=== PATIENT | female | born 1995 | race Caucasian/White ===

== ENCOUNTER 2016-09-02 17:19 | Emergency (ER) | payer OTHER ==
[2016-09-02 18:37] LABS: Hematocrit 39 % (35-47); Hemoglobin 12.9 g/dl (12.0-16.0); Mean Corpuscular HGB Conc 33 g/dl (31-36); Mean Corpuscular Hemoglobin 28 pg (27-31); Mean Corpuscular Volume 83 fL (80-97); Mean Platelet Volume 8 um3 (7.4-10.4); Red Blood Count 4.68 10^6/ul (4.0-5.4); Red Cell Distribution Width 13 % (10.5-15); White Blood Count 8.1 10^3/ul (3.5-10.8)
[2016-09-02 18:53] LABS: ALT 19 U/L (7-52); AST 31 U/L (13-39); Alkaline Phosphatase 48 U/L (34-104); Anion Gap 6 mmol/L (2-11); BUN/Creatinine Ratio 11.3 (8-20); Blood Urea Nitrogen 9 mg/dL (6-24); C Reactive Protein 4.87 mg/L (< 5.00); CO2 Carbon Dioxide 24 mmol/L (22-32); Calcium 8.9 mg/dL (8.6-10.3); Chloride 106 mmol/L (101-111); EGFR African American 118.8 (>60); EGFR Non-African American 92.4 (>60); Globulin 2.8 g/dL (2-4); Glucose 87 mg/dL (70-100); Potassium 3.8 mmol/L (3.5-5.0); Sodium 136 mmol/L (133-145); Total Protein 6.8 g/dL (6.4-8.9)
--- NOTE | 2016-09-02 18:54 | RAD ---
INDICATION: LEFT lower extremity pain. COMPARISON: None. TECHNIQUE: Abraham scale, color Doppler, and spectral analysis of the deep veins of the LEFT lower extremity. Vessel compression, phasicity, and augmentation assessed. REPORT: The LEFT common femoral, great saphenous, profunda femoral, femoral, popliteal, peroneal, and posterior tibial veins are patent. Patency of the contralateral common femoral vein documented. IMPRESSION: No evidence for LEFT lower extremity deep venous thrombosis.
[2016-09-02] MEDS ORDERED: Cephalexin CAP* 500 MG PO ONE ×2 (20:02)
--- NOTE | 2016-09-02 20:08 | ED ---
Julianne Ashford Erika, scribed for Venkat Mercado MD on 09/02/16 at 1832 . Lower Extremity - HPI Summary HPI Summary: Patient is a 20-year-old female presenting to the ED with a CC of left calf pain and swelling. Patient reports that on 08/29/2016, she was playing soccer, and her leg was sorer than usual. After practice, she noticed two red spots on the leg. Since then, the calf pain has worsened, the red spots have spread, and patient has developed swelling of the calf. She denies rash anywhere else. She denies SOB, decreased appetite, and urinary symptoms. Patient takes oral contraceptives. - History of Current Complaint Chief Complaint: EDExtremityLower Stated Complaint: LEFT CALF PAIN Time Seen by Provider: 09/02/16 17:53 Hx Obtained From: Patient Onset/Duration: Still Present Severity Currently: Moderate Pain Intensity: 8 Pain Scale Used: 0-10 Numeric Timing: Constant, Lasting Days Location: Is Discrete @ - L calf Associated Signs And Symptoms: Positive: Swelling, Other - Red areas on the inner calf. Negative: Knee Pain Aggravating Factor(s): Weight Bearing - Allergies/Home Medications Allergies/Adverse Reactions: Allergies Allergy/AdvReac Type Severity Reaction Status Date / Time No Known Allergies Allergy Verified 09/02/16 18:06 PMH/Surg Hx/FS Hx/Imm Hx Endocrine/Hematology History: Denies: Hx Diabetes Cardiovascular History: Denies: Hx Hypertension - Surgical History Surgery Procedure, Year, and Place: Appendectomy, tonsilletctomy, adenoidectomy Infectious Disease History: Denies: Traveled Outside the [place] in Last 30 Days - Family History Known Family History: Positive: Cardiac Disease, Hypertension, Other - HLD - Social History Occupation: Student Lives: With Family Alcohol Use: Weekly Hx Substance Use: No Substance Use Type: Reports: None Hx Tobacco Use: No Smoking Status (MU): Never Smoked Tobacco Review of Systems Negative: Shortness Of Breath Negative: Nausea Negative: dysuria, frequency Musculoskeletal: Other - left calf pain and swelling Positive: Rash - red spots on inner left calf All Other Systems Reviewed And Are Negative: Yes Physical Exam Triage Information Reviewed: Yes Vital Signs On Initial Exam: Initial Vitals Temp Pulse Resp BP Pulse Ox 97.4 F 60 16 134/59 100 09/02/16 17:23 09/02/16 17:23 09/02/16 17:23 09/02/16 17:23 09/02/16 17:23 Vital Signs Reviewed: Yes Appearance: Positive: Well-Appearing, No Pain Distress Skin: Positive: Warm, Skin Color Reflects Adequate Perfusion, Dry, Other - Multiple patchy 2.5 cm areas on the inner left calf. No spots on the arias Head/Face: Positive: Normal Head/Face Inspection Eyes: Positive: EOMI, SAGAR ENT: Positive: Normal ENT inspection Neck: Positive: Supple, Nontender Respiratory/Lung Sounds: Positive: Clear to Auscultation, Breath Sounds Present Cardiovascular: Positive: RRR Abdomen Description: Positive: Nontender, Soft Bowel Sounds: Positive: Present Musculoskeletal: Positive: Strength/ROM Intact, Other - Left calf tenderness. Non-tender knee Neurological: Positive: Normal, Sensory/Motor Intact, Alert, Oriented to Person Place, Time Psychiatric: Positive: Affect/Mood Appropriate Diagnostics - Vital Signs Vital Signs Temp Pulse Resp BP Pulse Ox 09/02/16 17:23 97.4 F 60 16 134/59 100 - Laboratory Lab Results: Lab Results 09/02/16 09/02/16 09/02/16 Range/Units 16:30 16:30 16:30 WBC 8.1 (3.5-10.8) 10^3/ul RBC 4.68 (4.0-5.4) 10^6/ul Hgb 12.9 (12.0-16.0) g/dl Hct 39 (35-47) % MCV 83 (80-97) fL MCH 28 (27-31) pg MCHC 33 (31-36) g/dl RDW 13 (10.5-15) % Plt Count 311 (150-450) 10^3/ul MPV 8 (7.4-10.4) um3 Neut % (Auto) 56.3 (38-83) % Lymph % (Auto) 31.5 (25-47) % [place] % (Auto) 5.8 (1-9) % Eos % (Auto) 5.3 (0-6) % Baso % (Auto) 1.1 (0-2) % Absolute Neuts (auto) 4.6 (1.5-7.7) 10^3/ul Absolute Lymphs (auto) 2.6 (1.0-4.8) 10^3/ul Absolute Monos (auto) 0.5 (0-0.8) 10^3/ul Absolute Eos (auto) 0.4 (0-0.6) 10^3/ul Absolute Basos (auto) 0.1 (0-0.2) 10^3/ul Absolute Nucleated RBC 0.01 10^3/ul Nucleated RBC % 0.1 INR (Anticoag Therapy) 0.93 (0.89-1.11) APTT 28.7 (26.0-36.3) seconds Sodium 136 (133-145) mmol/L Potassium 3.8 (3.5-5.0) mmol/L Chloride 106 (101-111) mmol/L Carbon Dioxide 24 (22-32) mmol/L Anion Gap 6 (2-11) mmol/L BUN 9 (6-24) mg/dL Creatinine 0.80 (0.51-0.95) mg/dL Est GFR ( Amer) 118.8 (>60) Est GFR (Non-Af Amer) 92.4 (>60) BUN/Creatinine Ratio 11.3 (8-20) Glucose 87 (70-100) mg/dL Calcium 8.9 (8.6-10.3) mg/dL Total Bilirubin 0.30 (0.2-1.0) mg/dL AST 31 (13-39) U/L ALT 19 (7-52) U/L Alkaline Phosphatase 48 (34-104) U/L C-Reactive Protein 4.87 (< 5.00) mg/L Total Protein 6.8 (6.4-8.9) g/dL Albumin 4.0 (3.2-5.2) g/dL Globulin 2.8 (2-4) g/dL Albumin/Globulin Ratio 1.4 (1-3) Beta HCG, Quant < 0.60 mIU/mL Result Diagrams: 09/02/16 16:30 09/02/16 16:30 Lab Statement: Any lab studies that have been ordered have been reviewed, and results considered in the medical decision making process. - Ultrasound No standard instances Ultrasound Interpretation Completed By: Radiologist - Venous Dopple LLE - IMPRESSION: No evidence for LEFT lower extremity deep venous thrombosis. Re-Evaluation - Re-Evaluation First Eval Re-Evaluation Time: 20:01 Comment: Discussed blood work and US results with patient Lower Extremity Course/Dx - Course Course Of Treatment: NO CRITICAL CARE TIME. Assessment/Plan: US NEG. 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 THE REDNESS HAS SPREAD IN THE ED GIVING THE APPEARANCE OF CELLULITIS. RX KEFLEX 500MG PO QID. DISCHARGE HOME STABLE. - Diagnoses Provider Diagnoses: Rash, Calf pain Discharge - Discharge Plan Condition: Stable Disposition: HOME Prescriptions: Cephalexin CAP* [Keflex CAP*] 500 mg PO QID #37 cap Patient Education Materials: Acute Rash (ED) Referrals: [facility] [Primary Care Provider] - Additional Instructions: FOLLOW UP WITH YOUR DOCTOR FOR THE RASH AND CALF PAIN. YOUR ULTRASOUND DID NOT SHOW A BLOOD CLOT. YOU HAVE BEEN STARTED ON KEFLEX (AN ANTIBIOTIC) FOR PRESUMED CELLULITIS. RETURN TO THE EMERGENCY DEPARTMENT FOR ANY WORSENING OF YOUR CONDITION; SPREAD OF THE REDNESS, YOU FEEL ILL OR QUESTIONS OR CONCERNS. The documentation as recorded by the Julianne bella Erika accurately reflects the service I personally performed and the decisions made by me, Venkat Mercado MD.
[2016-09-02 21:16] VITALS: BP 110/52
== END 2016-09-02 21:15 | disposition home or self-care (01) ==
LOC: ED 17:19
DX: R21 Rash and other nonspecific skin eruption (principal); M79.605 Pain in left leg
CPT/HCPCS: 36415; 80053; 84702; 85025; 85610; 85730; 86140; 99282; A9270-GY